=== PATIENT | male | born 1960 | race Two or more races ===

== ENCOUNTER 2025-01-29 02:44 | Emergency (ER) | payer OTHER ==
[~2025-01-29] VITALS: Ht 172.7 cm; Wt 104.8 kg
[~2025-01-29 02:44] MED LIST: LISI10TA34 PO; PANT40TA2 PO; TRIA37.586 PO; VANC125C3 PO
[2025-01-29 02:55] VITALS: BP 126/81; PULSE 85; RESP 18; TEMP 97.8; O2SAT 98
--- NOTE | 2025-01-29 03:10 | ED.PDOC ---
History of Present Illness HPI Comments 64 y/o M, with a history of depression and suicidal ideations, presents for mental health evaluation, today. Patient reports coming to the ED under recommendation of hotline nurse for mental health evaluation for worsening depression following his recent separation from his spouse 3 days ago. He is concerns for suicidal and homicidal ideations onset, due to previous history when his spouse left him before in the past. Denies any current psychiatric medication use. Denies any current suicidal or homicidal ideations, auditory or visual hallucination, or further associated symptoms. Chief Complaint: Mental Health Time Seen by MD: 02:50 Primary Care Provider: Deon Reviewed Notes: Nurses Notes, Medications, Allergies Allergies: Coded Allergies: NO KNOWN ALLERGIES (Unverified , 09/06/23) Home Meds Active Scripts Vancomycin HCl (Vancomycin HCl) 125 Mg Cap, 125 MG PO Q6HR for 10 Days, #40 CAP Prov:IDA BLAKELY MD 07/16/24 Reported Medications Hydrochlorothiazide W/Triamter (Triamterene/Hydrochloroth) 1 Cap Cap, 1 CAP PO, CAP 07/15/24 Pantoprazole Sodium Sesquihydr (Protonix) 40 Mg Tab, 40 MG PO DAILY, TAB 07/15/24 Lisinopril (Lisinopril) 10 Mg Tab, 10 MG PO DAILY, MG 07/15/24 Information Source: Patient Mode of Arrival: Ambulatory Severity: Moderate Timing: Days Duration: Since onset Prehospital treatment: None Review of Systems: REVIEW OF SYSTEMS: No fever, no chills, HEENT: No neck pain, no blurred vision Cardiac: No chest pain. No palpitations. Lungs: No shortness of breath, GI: No abdominal pain, no vomiting Musculoskeletal: No joint pain , no back pain Skin: No rash, no wound Neuro: No headache, no dizziness, no syncope Psychiatric: Depression, anxiety, difficulty sleeping Vital Signs Vital Signs Date Time Temp Pulse Resp B/P (MAP) Pulse Ox O2 Delivery O2 Flow Rate FiO2 01/29/25 02:55 97.8 85 18 126/81 (96) 98 97.8 Physical Exam General: Awake, alert and oriented. No acute distress. Skin: Skin in warm, dry and intact without rashes or lesions. HEENT: The head is normocephalic and atraumatic. Conjunctivae are clear without exudates or hemorrhage. Sclera is non-icteric. Neck: Normal range of motion. No JVD. Cardiac: Regular rate Respiratory: No signs of respiratory distress. No Stridor. Extremities: Upper and lower extremities are atraumatic in appearance without deformity. Neurological: The patient is awake, alert and oriented to person, place, and time with normal speech. Speech is clear. There is no facial asymmetry. Psychiatric: Appropriate mood and affect. Good judgement and insight. Past Medical History PAST MEDICAL HISTORY: HTN Family History Family History: Family hx of Cancer Social History Smoker: Non-Smoker Alcohol: Occasionally Drugs: Denies Drug Use Lives In: Home Was a procedure done? Was a procedure done?: No Differential Dx Considerations may include: Suicidal, depression, hopelessness, anxiety, among others X-Ray, Labs, Meds, VS Vital Signs Date Time Temp Pulse Resp B/P (MAP) Pulse Ox O2 Delivery O2 Flow Rate FiO2 01/29/25 02:55 97.8 85 18 126/81 (96) 98 97.8 Lab Test 01/29/25 02:54 01/29/25 02:53 Range/Units White Blood Count 4.4 4.4-10.8 10^3/uL Red Blood Count 3.85 L 4.5-5.90 10^6/uL Hemoglobin 8.4 L 13.5-17.5 g/dL Hematocrit 27.7 L 41.0-53.0 % Mean Corpuscular Volume 71.8 L 80.0-100.0 fL Mean Corpuscular Hemoglobin 21.8 L 28.0-32.0 pg Mean Corpuscular Hemoglobin Concent 30.4 L 32.0-36.0 g/dL Red Cell Distribution Width 20.1 H 11.8-14.3 % Platelet Count 273 140-450 10^3/uL Mean Platelet Volume 8.3 6.9-10.8 fL Neutrophils (%) (Auto) 70.9 37.0-80.0 % Lymphocytes (%) (Auto) 17.1 10.0-50.0 % Monocytes (%) (Auto) 8.7 0.0-12.0 % Eosinophils (%) (Auto) 2.7 0.0-7.0 % Basophils (%) (Auto) 0.6 0.0-2.0 % Neutrophils # (Auto) 3.1 1.6-8.6 10 ^3/uL Lymphocytes # (Auto) 0.7 0.4-5.4 10 ^3/uL Monocytes # (Auto) 0.4 0-1.3 10 ^3/uL Eosinophils # (Auto) 0.1 0-0.8 10 ^3/uL Basophils # (Auto) 0 0-0.2 10 ^3/uL Nucleated Red Blood Cells 0.2 % Sodium Level 142 136-145 mmol/L Potassium Level 3.8 3.5-5.1 mmol/L Chloride Level 110 H 98-107 mmol/L Carbon Dioxide Level 24 20-31 mmol/L Anion Gap 8 5-15 Blood Urea Nitrogen 14 9-23 mg/dL Creatinine 1.04 0.700-1.30 mg/dL Glomerular Filtration Rate Calc 79 >90 mL/min BUN/Creatinine Ratio 13.5 10.0-20.0 Serum Glucose 113 H 74-106 mg/dL Calcium Level 9.2 8.7-10.4 mg/dL Total Bilirubin 0.4 0.2-1.0 mg/dL Aspartate Amino Transferase (AST) 12 L 13-40 U/L Alanine Aminotransferase (ALT) 20 7-40 U/L Alkaline Phosphatase 47 46-116 U/L Total Protein 6.8 5.7-8.2 g/dL Albumin 4.5 3.2-4.8 g/dL Plasma/Serum Blood Alcohol < 3.0 <10 mg/dL Urine Color Yellow Yellow Urine Clarity Clear Clear Urine pH 5.5 5.0-9.0 Urine Specific [place] 1.025 1.001-1.035 Urine Protein Trace H Negative Urine Ketones Trace Negative Urine Blood Negative Negative /uL Urine Nitrite Negative Negative Urine Bilirubin Negative Negative Urine Urobilinogen Normal Negative mg/dL Urine Leukocyte Esterase Negative Negative /uL Urine RBC None seen 0 - 3 /hpf Urine Microscopic WBC 2 0-3 /HPF Urine Squamous Epithelial Cells Few <5 /hpf Urine Bacteria None seen None Seen /hpf Urine Mucus Few None Seen Urine Glucose Trace Normal mg/dL Urine Opiates Screen Neg NEGATIVE Urine Fentanyl Screen Neg NEGATIVE Urine Barbiturates Screen Neg NEGATIVE Urine Phencyclidine Screen Neg NEGATIVE Urine Amphetamines Screen Neg NEGATIVE Urine Benzodiazepines Screen Neg NEGATIVE Urine Cocaine Screen Neg NEGATIVE Urine Cannabinoids Screen Neg NEGATIVE Time of 1ST Reevaluation: 04:31 Reevaluation 1ST: Unchanged Patient Education/Counseling: Need For Follow Up Family Education/Counseling: No Family Present Departure 1 Departure Time of Disposition: 04:22 Impression: Primary Impression: Anxiety Additional Impression: Adjustment disorder with depressed mood Disposition: 01 HOME / SELF CARE / HOMELESS Condition: Stable Additional Instructions: ED DISCHARGE INSTRUCTIONS Instructions: Please read all instructions provided in this packet carefully. Although you have been discharged from the Emergency Department, this does not mean that you have a "clean bill of health". It is possible that you are in the process of developing a serious illness. This is why you must return to the ED without fail if any new or worsening symptoms (especially if your symptoms include severe anxiety, thoughts of hurting yourself or others, chest pain, trouble breathing, abdominal pain, fever, headache, confusion, trouble seeing, or trouble walking) It is also very important that you see a primary care doctor within the next 3-5 days to follow up. Follow up for mental health care as recommended by Dr. Singh. If you are unable to get an appointment, return to the ED for re-evaluation. Where to get help 24 hours a day, 7 days a week Call the Suicide and Crisis Lifeline at 094. Call 8-251-214-JNFQ ( ). Text HOME to 222741 to access the Crisis Text Line. Consider saving these numbers in your phone. Go to [email or web address] for more information or to chat online. e-Prescriptions Trazodone HCl (Trazodone Hydrochloride) 50 Mg Tab 50 MG PO QHSP PRN for 14 Days, #14 TAB 1 Refill Prov: DANIELA MONTES MD 01/29/25 Paroxetine Hydrochloride (Paroxetine Hydrochloride) 10 Mg Tab 10 MG PO DAILY for 30 Days, #30 TAB 1 Refill Prov: DANIELA MONTES MD 01/29/25 Comments 64-year-old male with depression, anxiety. No active or passive suicidal ideation. Case discussed with Dr. Singh. Recommendation is outpatient mental health treatment. Patient to be started on paroxetine and trazodone. Patient well-appearing, nontoxic. Advised prompt follow-up with PCP, return to the ED with any new, worsening or concerning symptoms. Extensive evaluation was performed in attempt to identify or rule out: (See differential diagnosis section) The following tests were ordered, and results were reviewed by me and discussed with patient: (See diagnostic results section) The following test were independently interpreted by me: N/A I reviewed and agreed with the following test results read by other providers: N/A I reviewed the following notes from the pt's past medical encounters: July 14, 2024 and September 06, 2023 encounters for rectal bleeding and hypertensive urgency, respectively Additional information was gathered from interviewing the following independent historians: N/A Discussion of management or test interpretation with external physician/other qualified health live in caregiver: Dr. Singh Decision regarding hospitalization or escalation of hospital level of care: Risks and benefits of admission for further treatment of patient's condition was considered however due to patient's stable condition patient will be discharged to follow up closely or return to care for worsening of condition or inability to follow up. Critical Care Note Critical Care Time?: No Stability Stability form required: No Heart Score Heart Score: Heart Score Response (Comments) Value History N/A 0 EKG N/A 0 Age N/A 0 Risk Factors N/A 0 Troponin N/A 0 Total 0 I personally scribed for DANIELA MONTES MD ([email or web address]) on 01/29/25 at 03:10. Electronically submitted by Sharath Villarreal ([email or web address]). DANIELA MONTES MD January 29, 2025 03:10
[2025-01-29 03:16] LABS: Basophils # (auto) 0 10 ^3/uL (0-0.2); Basophils % (auto) 0.6 % (0.0-2.0); Eosinophils # (auto) 0.1 10 ^3/uL (0-0.8); Hemoglobin 8.4 g/dL (13.5-17.5); Monocytes # (auto) 0.4 10 ^3/uL (0-1.3); Neutrophils # (auto) 3.1 10 ^3/uL (1.6-8.6); White Blood Cell 4.4 10^3/uL (4.4-10.8)
[2025-01-29 03:18] LABS: Eosinophils % (auto) 2.7 % (0.0-7.0); Hematocrit 27.7 % (41.0-53.0); Lymphocytes # (auto) 0.7 10 ^3/uL (0.4-5.4); Lymphocytes % (auto) 17.1 % (10.0-50.0); Mean Corpuscular Hemoglobin 21.8 pg (28.0-32.0); Mean Corpuscular Hgb Conc. 30.4 g/dL (32.0-36.0); Mean Corpuscular Volume 71.8 fL (80.0-100.0); Monocytes % (auto) 8.7 % (0.0-12.0); Neutrophils % (auto) 70.9 % (37.0-80.0); Nucleated Red Blood Cells % 0.2 %; Platelet Count (auto) 273 10^3/uL (140-450); Red Blood Cells 3.85 10^6/uL (4.5-5.90); Red Cell Distribution Width 20.1 % (11.8-14.3)
[2025-01-29 03:40] LABS: Urine Bacteria None Seen /hpf (None Seen)
[2025-01-29 03:47] LABS: Alanine Aminotransferase 20 U/L (7-40); Albumin 4.5 g/dL (3.2-4.8); Alkaline Phosphatase 47 U/L (46-116); Anion Gap 8 (5-15); BUN/Creatinine Ratio 13.5 (10.0-20.0); Bilirubin, Total 0.4 mg/dL (0.2-1.0); Blood Urea Nitrogen 14 mg/dL (9-23); Calcium 9.2 mg/dL (8.7-10.4); Carbon Dioxide 24 mmol/L (20-31); Potassium 3.8 mmol/L (3.5-5.1); Sodium 142 mmol/L (136-145); Total Protein 6.8 g/dL (5.7-8.2)
[2025-01-29 03:47] LABS: Urine Blood Negative /uL (Negative); Urine Clarity Clear (Clear); Urine Color Yellow (Yellow); Urine Mucus FEW (None Seen); Urine Protein, UAD TRACE (Negative); Urine Specific Gravity 1.025 (1.001-1.035); Urine Squamous Epithelial Cell FEW /hpf (<5); Urine Urobilinogen Normal (Negative); Urine WBC 2 /HPF (0-3); Urine pH 5.5 (5.0-9.0)
[2025-01-29 03:48] LABS: Aspartate Aminotransferase 12 U/L (13-40); Chloride 110 mmol/L (98-107); Glucose 113 mg/dL (74-106)
[2025-01-29 03:59] LABS: Amphetamine Screen, Urine Neg (NEGATIVE); Barbiturate Scree,Urine Neg (NEGATIVE); Benzodiazephine Screen, Urine Neg (NEGATIVE); Cannabinoid Screen, Urine Neg (NEGATIVE); Cocaine Screen, Urine Neg (NEGATIVE); Opiate Scree,Urine Neg (NEGATIVE); Phencyclidine Screen, Urine Neg (NEGATIVE)
--- NOTE | 2025-01-29 04:10 | DVHINCON2 ---
Date of Service if different f: January 29, 2025 Time of Service: 03:35 Consult Consult Note PSYCHIATRY ED NEW CONSULT HPI: 64 yo pt with PPH of depression and anxiety presents to ED BIB self for safety, psychiatric stabilization, and possible med initiation in setting of depression, anxiety. Psychiatry consulted for safety evaluation and recommendations in context of current presentation Per pt, report over past several days experiencing some sad mood, some isolation/withdrawal, decreased energy, poor sleep and anxiety symptoms to include excessive worry, rumination, racing thoughts. Reports minimal interference with daily functioning. Reports primary stress as recent separation from spouse several days ago whom he suspects of infidelity. Denies SI/HI/AVH/paranoia/catatonic/perceptual disturbances/personality changes. No overt manic, psychotic, MDD, cognitive, dissociative phenomena, panic, OCD, PTSD, or somatic symptoms noted Pt currently does not have active outpt MH services established at this time. Currently not on any psychotropic agents, prior psych med trials include paxil but none in several decades Denies ETOH, THC or IDU with 4 adult children but recent separation, maintains contact with all children, unemployed/ssi, lives with grandson, some support system noted (immediate family) Unknown trauma hx. Denies FH of psych hospitalizations, suicide attempts, or completed suicides No acute medical/chronic pain issues although does have anemia. No hx of seizures/TBI, or recent head injuries, NKDA Remote hx of SI but no hx of SIB/SA/PSG or prior psych hospitalizations/5150 holds. Denies history of violence, unprovoked aggression, or assaultive behaviors. Denies recent hx of impulsivity, attention seeking behaviors, anger outbursts, emotional dysregulation, mood reactivity, or engaging in risky b ehaviors. Denies any legal problems Currently denies SI/HI/AVH. Does not have access to firearms. Identifies self/family as PPF. No acute safety concerns noted during encounter MSE: General Appearance/Behavior: Alert and awake; appears stated age, overweight, fair grooming and hygiene; calm and cooperative, fair eye contact, no PMA/PMR Speech: coherent, rrr Thought Process: linear, logical, appears goal-directed Thought Content: Abnormal Thoughts and Perceptions: denies dissociative symptoms Homicidality / Violent Thoughts: adamantly denies HI Suicidality: adamantly denies SI Hallucinations: denies AVTH Delusions: denies paranoia, persecutory, or grandiose delusions Obsessions /compulsions: None Judgment and Insight: fair/fair Mood & Affect: "little sad" with mood-congruent, somewhat restricted but appropriate Orientation: oriented to person, place, time Attention/Concentration: appears intact Cognition: grossly intact Assessment: 64 yo pt with PPH of depression and anxiety presents to ED BIB self for safety, psychiatric stabilization, and possible med initiation in setting of depression, anxiety Currently denies SI/HI/AVH. Linear and appears future oriented/goal directed in thought. Identifies several protective factors including a desire to live, family support/grandson. No hx of SA/SIB or prior psych hospitalizations is reassuring. Pt medically cleared Pts presenting MH symptoms appear more secondary to difficulty controlling emotions and adjustment depression in context of acute psychosocial stressor (see HPI) with minimal interference in daily functioning Presently, pt does not show any signs of immediate danger to self/others or GD that would necessitate 5150 or involuntary inpatient psych admission. However offered voluntary inpt psychiatric hospitalization but pt declined. Also declined further ED observation/reevaluation. No acute safety concerns noted. Acute suicide risk appears nonexistent to relatively low Pt currently does not have psychiatrist/therapist out in community although interested in seeking MH resources prior to d/c for psychotherapy Currently not on any psychotropics. Pt would benefit from an antidepressant to address depressive and anxiety symptoms that have been exacerbated prior to this admission. Primary Diagnosis: Adjustment disorder with depressed mood and anxiety. Depressive disorder unspecified Plan: Does not warrant involuntary inpatient psychiatric hospitalization or 5150 hold at this time No acute safety concerns Pt can be safely discharged back to current residence Recommend d/c pt on 30 day rx of Paroxetine 10 mg po qd and 14 day rx of Trazodone 50 mg qhs prn insomnia Risks/benefits/alternative treatments discussed, informed consent provided by pt Supportive tx provided, discussed safety plan with pt Emphasized sleep hygiene, exercise, healthy nutrition, and social activation Encouraged mindfulness techniques (reading, walking, meditation, journaling, exercise, deep breathing) during times of stress Would benefit from establishing community MH services for psychotx/psychiatric med initiation/management please provide pt MH resources prior to discharge per pts request for psychotherapy Instructed pt to call/text [phone] or return to ED if MH symptoms worsen or new onset SI/HI upon discharge Pt verbalized understanding and is receptive to above tx plan This case was discussed with ED nurse/provider and all parties in agreement with above tx plan Jacobo Singh MD Plan discussed with: Patient JACOBO SINGH MD January 29, 2025 04:10
[2025-01-29 04:11] LABS: Blood Alcohol < 3.0 mg/dL (<10)
[2025-01-29] MEDS ORDERED: PARO10TA93 PO (04:28)
[2025-01-29] MEDS ORDERED: TRAZ-181 PO (04:28)
== END 2025-01-29 04:38 | disposition home or self-care (01) ==
LOC: ER 02:44
DX: F43.23 Adjustment disorder with mixed anxiety and depressed mood (principal); E66.3 Overweight; I10 Essential (primary) hypertension; F10.90 Alcohol use, unspecified, uncomplicated; Y90.9 Presence of alcohol in blood, level not specified; Z79.899 Other long term (current) drug therapy; Z71.82 Exercise counseling
CPT/HCPCS: 36415; 80053; 80307; 80320; 81001; 85025